=== PATIENT | male | born 1940 | race Two or more races ===

== ENCOUNTER 2024-06-30 14:50 | Observation (INO) | payer OTHER ==
[2024-06-30 15:01] VITALS: BMI 26.6
[2024-06-30 16:59] LABS: BASO % 0.9 % (0-2.0); EOS % 4.2 % (0-4.5); HEMATOCRIT 36.5 % (35.4-49); HEMOGLOBIN 11.8 GM/dL (11.7-16.9); LYMPH % 26.7 % (8-40); MCH 27.9 pg (25.7-33.7); MCHC 32.4 g/dl (32.0-35.9); MEAN PLT VOLUME 7.3 fl (7.5-11.1); MONO % 6.6 % (3.8-10.2); NEUT % 61.6 % (42.8-82.8); PLATELET COUNT 389 10^3/uL (134-434); RBC 4.24 M/mm3 (4.00-5.60); RDW 15.2 % (11.9-15.9); WHITE BLOOD COUNT 7.7 K/mm3 (4.0-10.0)
[2024-06-30 17:17] LABS: POTASSIUM 4.2 mmol/L (3.5-5.1)
[2024-06-30 17:19] LABS: ALBUMIN 3.7 g/dl (3.4-5.0)
[2024-06-30 17:24] LABS: BILIRUBIN,TOTAL 0.4 mg/dL (0.2-1); TOT PROT 7.2 g/dl (6.4-8.2)
[2024-06-30] MEDS: SODIUM CHLORIDE 1,000 ML IV SCH (19:44)
[2024-07-01 05:24] VITALS: TEMP 97.5
[2024-07-01 05:33] LABS: EPI CELLS 2 /uL (0-25.1); HYALINE CASTS 0 /uL (0-3.1); PH,URINE 6.5 (5.0-8.0); URINE APPEARANCE CLEAR; URINE BACTERIA 3 /uL (0-1359); URINE BILIRUBIN NEGATIVE (NEGATIVE); URINE COLOR YELLOW; URINE GLUCOSE (UA) 3+ (NEGATIVE); URINE KETONE NEGATIVE (NEGATIVE); URINE LEUK ESTERASE NEGATIVE (NEGATIVE); URINE NITRITE NEGATIVE (NEGATIVE); URINE PROTEIN 2+ (NEGATIVE); URINE RBC 7 /uL (0-23.9); URINE UROBILINOGEN 0.2 mg/dL (0.2-1.0); URINE WBC 2 /uL (0-25.8)
[2024-07-01] MEDS: HEPARIN NA (PORCINE) 5,000 UNITS/ML 1ML VIAL SQ SCH (05:53)
[2024-07-01] MEDS: GABAPENTIN 300 MG CAPSULE PO SCH (05:53)
[2024-07-01] MEDS: SODIUM CHLORIDE 1,000 ML IV STA (06:00)
[2024-07-01] MEDS: INSULIN ASPART SLIDING SCALE (NOVOLOG) 1 VIAL SQ SCH ×2 (06:10→12:08)
[2024-07-01 09:01] VITALS: BP 151/75; PULSE 71; RESP 18
[2024-07-01] MEDS: SODIUM CHLORIDE 1,000 ML IV SCH (09:51)
[2024-07-01] MEDS: DULoxetine HCL 30 MG CAPSULE.DR PO SCH (09:52)
[2024-07-01] MEDS: NIFEdipine E.R. 30 MG TABLET PO SCH (09:52)
[2024-07-01] MEDS: MAGNESIUM OXIDE 400 MG TABLET (FP) PO SCH (09:52)
[2024-07-01 10:38] LABS: BASO % 0.6 % (0-2.0); EOS % 3.6 % (0-4.5); HEMATOCRIT 35.6 % (35.4-49); LYMPH % 23.7 % (8-40); MCH 28.4 pg (25.7-33.7); MCHC 33.8 g/dl (32.0-35.9); MEAN CELL VOLUME 84.1 fl (80-96); MEAN PLT VOLUME 7.4 fl (7.5-11.1); MONO % 7.2 % (3.8-10.2); NEUT % 64.9 % (42.8-82.8); PLATELET COUNT 375 10^3/uL (134-434); RBC 4.23 M/mm3 (4.00-5.60); RDW 14.9 % (11.9-15.9); WHITE BLOOD COUNT 7.6 K/mm3 (4.0-10.0)
[2024-07-01 10:53] LABS: POTASSIUM 4.4 mmol/L (3.5-5.1)
[2024-07-01 10:56] LABS: ALBUMIN 3.6 g/dl (3.4-5.0); CALCIUM 8.9 mg/dL (8.5-10.1)
[2024-07-01 10:57] LABS: BLOOD UREA NITROGEN 21.1 mg/dL (7-18); MAGNESIUM 1.8 mg/dL (1.8-2.4)
[2024-07-01 11:00] LABS: CREATININE 1.8 mg/dL (0.55-1.3); PHOSPHOROUS 2.9 mg/dL (2.5-4.9)
[2024-07-01 11:01] LABS: BILIRUBIN,TOTAL 0.9 mg/dL (0.2-1); TOT PROT 7.1 g/dl (6.4-8.2)
[2024-07-01 11:05] LABS: CHOLESTEROL 144 mg/dL (50-200)
[2024-07-01 11:06] LABS: LDL CHOLESTEROL (ONLY SJRH) 82 mg/dL (5-100)
[2024-07-01 11:08] LABS: HDL CHOLESTEROL 36 mg/dL (40-60)
[2024-07-01] MEDS ORDERED: ATORVASTATIN CA 40 MG TABLET (FP) PO SCH (22:00)
[2024-07-01] MEDS ORDERED: TAMSULOSIN HCL 0.4 MG CAP PO SCH (22:00)
== END 2024-07-01 13:21 | disposition home or self-care (01) ==
LOC: JER 14:50 → JERBED 19:22 → J5S 22:33
PROVIDERS: ADMIT Internal Medicine; ATTEND Internal Medicine
PROC: 3E023GC Introduction of Other Therapeutic Substance into Muscle, Percutaneous Approach (ICD-10-PCS; principal; 2024-06-30)
PROC: 3E0337Z Introduction of Electrolytic and Water Balance Substance into Peripheral Vein, Percutaneous Approach (ICD-10-PCS; 2024-06-30)
DX: R42 Dizziness and giddiness (principal); E78.5 Hyperlipidemia, unspecified; E11.22 Type 2 diabetes mellitus with diabetic chronic kidney disease; I12.9 Hypertensive chronic kidney disease with stage 1 through stage 4 chronic kidney disease, or unspecified chronic kidney disease; N18.9 Chronic kidney disease, unspecified; H35.30 Unspecified macular degeneration; F32.A Depression, unspecified; W18.39XA Other fall on same level, initial encounter; Y93.89 Activity, other specified; Y92.89 Other specified places as the place of occurrence of the external cause
CPT/HCPCS: 0241U-QW; 36415; 70450-TC; 71045-TC-FY; 72125-TC; 76775-TC; 80053; 80061; 81003; 82550; 82962; 83735; 84100; 84443; 84484; 85025; 93005; 93010; 96360; 96361; 96372; 99285-25; G0378; J1644